=== PATIENT | female | born 1975 | race African-American/Black ===

== ENCOUNTER 2021-08-28 11:27 | Outpatient (CLI) | payer OTHER ==
[2021-08-28 12:56] LABS: PLATELET COUNT 201 K/uL (152-353)
[2021-08-28 13:20] LABS: POTASSIUM 3.9 mmol/L (3.6-5.2)
== END 2021-08-28 20:40 | disposition home or self-care (01) ==
LOC: RAD 11:27
PROVIDERS: ATTEND Pediatrics
DX: M54.9 Dorsalgia, unspecified (principal); M54.10 Radiculopathy, site unspecified; M62.81 Muscle weakness (generalized)
CPT/HCPCS: 36415; 80053; 82550; 84439; 84443; 85027